=== PATIENT | female | born 1985 | race Caucasian/White ===

== ENCOUNTER 2019-02-10 04:44 | Emergency (ER) | payer BC ==
[2019-02-10 04:56] VITALS: BP 119/83; PULSE 77
[2019-02-10] MEDS ORDERED: Ondansetron 4 MG/2 ML SDV IVPUSH ONE (05:05)
[2019-02-10] MEDS ORDERED: Ketorolac 30 MG/ML SDV IVPUSH ONE (05:06)
--- NOTE | 2019-02-10 05:09 | EDM.PDOC ---
ED HPI GENERAL MEDICAL PROBLEM - General Chief Complaint: Abdominal Pain Stated Complaint: left side sharp pain in back and stomach Time Seen by Provider: 02/10/19 05:07 Source of Information: Reports: Patient History Limitations: Reports: No Limitations - History of Present Illness INITIAL COMMENTS - FREE TEXT/NARRATIVE: This is a 33-year-old female. Around midnight she awoke suddenly with excruciating pain in her left flank. She became nauseated and vomited 1. She got up and walked around and drank some fluids and the pain began to radiate around to the front and down to the left lower quadrant. It has not seemed to ease up completely and she comes to the ER for evaluation. She has no history of kidney stones. She denies any fever or chills. She denies any recent illnesses. 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 History: preeclampsia, dysmenorrhea Oncologic (Cancer) History: Reports: Thyroid Other Oncologic History: follicular thyroid cancer - Past Surgical History Endocrine Surgical History: Reports: Thyroid Biopsy, Thyroidectomy Other Endocrine Surgeries/Procedures: thyroid nodule Social & Family History - Family History HEENT: Reports: Cataract Cardiac: Reports: Afib, High Cholesterol, Hypertension, Pacemaker Other Cardiac Family History: mother father and grandfather Respiratory: Reports: Asthma Neurological: Reports: MS, Parkinson's Other Neurological Family History: aunt, uncle Endocrine/Metabolic: Reports: Diabetes, type II Hematologic: Reports: Immune Thrombocytopenic Purpura Other Hematologic Family History: ITP-sister and dad; "they don't have any platelets" Other Oncologic Family History: cancer of the larynx - Tobacco Use Smoking Status *Q: Current Some Day Smoker Years of Tobacco use: 16 Packs/Tins Daily: 0.5 - Caffeine Use Caffeine Use: Reports: Coffee - Recreational Drug Use Recreational Drug Use: No ED ROS GENERAL - Review of Systems Review Of Systems: See Below Constitutional: Denies: Fever, Chills HEENT: Reports: No Symptoms Respiratory: Reports: No Symptoms Cardiovascular: Reports: No Symptoms Endocrine: Reports: No Symptoms GI/Abdominal: Reports: No Symptoms : Reports: Flank Pain Musculoskeletal: Reports: Back Pain Skin: Reports: No Symptoms Neurological: Reports: No Symptoms Psychiatric: Reports: No Symptoms Hematologic/Lymphatic: Reports: No Symptoms ED EXAM, RENAL/ - Physical Exam Exam: See Below Exam Limited By: No Limitations General Appearance: Alert, WD/WN, Mild Distress Eye Exam: Bilateral Eye: Normal Inspection Ears: Normal External Exam Nose: Normal Inspection Throat/Mouth: Normal Inspection, Normal Lips, Normal Voice Head: Normocephalic Neck: Supple Respiratory/Chest: No Respiratory Distress GI/Abdominal: Soft Back Exam: Normal Inspection, Full Range of Motion, CVA Tenderness (L) Extremities: Normal Inspection, Normal Range of Motion Neurological: Alert, Oriented Psychiatric: Normal Affect, Normal Mood Skin Exam: Warm, Dry Course - Vital Signs Last Recorded V/S: Last Vital Signs Temp 97.5 F 02/10/19 04:52 Pulse 77 02/10/19 04:52 Resp 20 02/10/19 04:52 BP 119/83 02/10/19 04:52 Pulse Ox 97 02/10/19 04:52 - Orders/Labs/Meds Orders: Active Orders 24 hr Category Date Time Status Abdomen Pelvis wo Cont [CT] Stat Exams 02/10/19 05:06 Taken Sodium Chloride 0.9% [Normal Saline] 1,000 ml Med 02/10/19 05:15 Active IV ASDIRECTED Medication Orders Sodium Chloride (Normal Saline) 1,000 mls @ 1,000 mls/hr IV ASDIRECTED MADHU Last Admin: 02/10/19 05:19 Dose: 1,000 mls/hr Labs: Laboratory Tests 02/10/19 02/10/19 02/10/19 Range/Units 05:12 05:15 05:15 WBC 15.15 H (3.98-10.04) K/mm3 RBC 4.71 (3.98-5.22) M/mm3 Hgb 14.0 (11.2-15.7) gm/L Hct 41.0 (34.1-44.9) % MCV 87.0 D (79.4-94.8) fl MCH 29.7 (25.6-32.2) pg MCHC 34.1 (32.2-35.5) g/dl RDW Std Deviation 38.8 (36.4-46.3) fL Plt Count 213 D (182-369) K/mm3 MPV 10.0 (9.4-12.3) fl Neut % (Auto) 85.0 H (34.0-71.1) % Lymph % (Auto) 9.9 L (19.3-51.7) % [place] % (Auto) 4.6 L (4.7-12.5) % Eos % (Auto) 0.1 L (0.7-5.8) Baso % (Auto) 0.2 (0.1-1.2) % Neut # (Auto) 12.87 H (1.56-6.13) K/mm3 Lymph # (Auto) 1.50 (1.18-3.74) K/mm3 [place] # (Auto) 0.70 H (0.24-0.36) K/mm3 Eos # (Auto) 0.02 L (0.04-0.36) K/mm3 Baso # (Auto) 0.03 (0.01-0.08) K/mm3 Manual Slide Review Abnormal smear Sodium 138 (136-145) mEq/L Potassium 3.7 (3.5-5.1) mEq/L Chloride 107 (98-107) mEq/L Carbon Dioxide 19 L (21-32) mEq/L Anion Gap 15.7 H (5-15) BUN 25 H (7-18) mg/dL Creatinine 1.0 (0.55-1.02) mg/dL Est Cr Clr Drug Dosing 71.33 mL/min Estimated GFR (MDRD) > 60 (>60) mL/min BUN/Creatinine Ratio 25.0 H (14-18) Glucose 139 H (74-106) mg/dL Calcium 9.1 (8.5-10.1) mg/dL Total Bilirubin 0.2 (0.2-1.0) mg/dL AST 12 L (15-37) U/L ALT 21 (14-59) U/L Alkaline Phosphatase 42 L (46-116) U/L Total Protein 7.2 (6.4-8.2) g/dl Albumin 4.2 (3.4-5.0) g/dl Globulin 3.0 gm/dL Albumin/Globulin Ratio 1.4 (1-2) Urine Color Yellow (Yellow) Urine Appearance Clear (Clear) Urine pH 6.5 (5.0-8.0) Ur Specific [place] 1.020 (1.005-1.030) Urine Protein Trace H (Negative) Urine Glucose (UA) Negative (Negative) Urine Ketones Negative (Negative) Urine Occult Blood 2+ H (Negative) Urine Nitrite Negative (Negative) Urine Bilirubin Negative (Negative) Urine Urobilinogen 0.2 (0.2-1.0) Ur Leukocyte Esterase Negative (Negative) Urine RBC 10-20 H (0-5) /hpf Urine WBC 0-5 (0-5) /hpf Ur Squamous Epith Cells 0-5 (0-5) /hpf Urine Bacteria Few (FEW) /hpf Hyaline Casts 0-5 (0-5) /lpf Urine Mucus Few (FEW) /hpf Meds: Medications Generic Name Dose Route Start Last Admin Trade Name Freq PRN Reason Stop Dose Admin Sodium Chloride 1,000 mls @ 1,000 mls/hr 02/10/19 05:15 02/10/19 05:19 Normal Saline IV 1,000 mls/hr ASDIRECTED MADHU Administration Discontinued Medications Generic Name Dose Route Start Last Admin Trade Name Freq PRN Reason Stop Dose Admin Ketorolac Tromethamine 30 mg 02/10/19 05:06 02/10/19 05:18 Toradol IVPUSH 02/10/19 05:07 30 mg ONETIME ONE Administration Ondansetron HCl 4 mg 02/10/19 05:05 02/10/19 05:22 Zofran IVPUSH 02/10/19 05:06 4 mg ONETIME ONE Administration - Radiology Interpretation Free Text/Narrative:: CT scan shows bilateral nephrolithiasis. There is some mild left perinephric stranding and there is mild left caliectasis and slight dilatation of the left proximal ureter no stones visualized. It would appear that she passed the stone. - Re-Assessments/Exams Free Text/Narrative Re-Assessment/Exam: 02/10/19 06:15 I spoke to the patient regarding the CT scan results and her blood work. It does appear from the urine and the CT scan that she had a stone and that she passed it. She still has stones in the kidneys however and we discussed that they can come any time and she drinks a lot of coffee and I indicated that this can sometimes promote kidney stones and water for the best fluid. I will send her home with urine strainer but she does not appear to need any pain medications or medicines for nausea. She just has some soreness in the left side but no sharp pain presently Departure - Departure Time of Disposition: 06:16 Disposition: Home, Self-Care 01 Condition: Good Clinical Impression: Ureteral calculus, left, Renal colic on left side Nausea & vomiting Qualifiers: Vomiting type: unspecified Vomiting Intractability: non-intractable Qualified Code(s): R11.2 - Nausea with vomiting, unspecified - Discharge Information *PRESCRIPTION DRUG MONITORING PROGRAM REVIEWED*: Not Applicable *COPY OF PRESCRIPTION DRUG MONITORING REPORT IN PATIENT BRIAN: Not Applicable Instructions: Kidney Stones, Renal Colic Referrals: Bessy Fonseca PA-C [Primary Care Provider] - Forms: ED Department Discharge Additional Instructions: Drink lots of water, strain your urine to see you can capture the stone was in the bladder and then take it to your family doctor for analysis, use Aleve or ibuprofen for the soreness, there is no telling when the other kidney stones might decide to move towards the bladder which will again cause severe pain but you already passed the stone that you had in the left ureter, return to the ER if needed - My Orders Last 24 Hours: My Active Orders 02/10/19 05:06 Abdomen Pelvis wo Cont [CT] Stat 02/10/19 05:15 Sodium Chloride 0.9% [Normal Saline] 1,000 ml IV ASDIRECTED - Assessment/Plan Last 24 Hours: My Active Orders 02/10/19 05:06 Abdomen Pelvis wo Cont [CT] Stat 02/10/19 05:15 Sodium Chloride 0.9% [Normal Saline] 1,000 ml IV ASDIRECTED
[2019-02-10] MEDS ORDERED: Sodium Chloride 0.9% 1,000 ML IV SCH (05:15)
--- NOTE | 2019-02-11 14:12 | CT ---
CT abdomen and pelvis Technique: Multiple axial sections were obtained from above the dome of the diaphragm inferiorly through the pubic symphysis. Intravenous and oral contrast was not utilized. Study has been performed as a ureteral stone protocol. Findings: Multiple nonobstructing calculi are seen within both kidneys. Left kidney is slightly swollen. Left ureter shows no dilatation. No definite ureteral calculi are seen. Findings raise the possibility of recent stone passage on the left side. Visualized lung bases show nothing acute on either side. Noncontrast appearance of the liver and spleen appear within normal limits. Adrenal glands show no nodule. Pancreas shows no discrete abnormality. Gallbladder contains no calcified gallstones. Aorta shows no aneurysm. No retroperitoneal adenopathy or mesenteric abnormalities are seen. No pelvic mass or adenopathy is seen. No free fluid or inflammatory change is seen. Appendix is seen and is normal in size. Bone window settings were reviewed which appear within normal limits for the patient's age. Impression: 1. Multiple nonobstructing calculi within both kidneys. 2. Left kidney is swollen but no signs of ureteral stone noted on the left side. Please correlate if patient symptoms have improved to indicate recent stone passage. 3. Nothing acute is otherwise seen on noncontrast CT study of the abdomen and pelvis. Diagnostic code #2 I agree with preliminary report from [facility], finalized on 02/10/19, 7:00 AM Central Time
== END 2019-02-10 06:35 | disposition home or self-care (01) ==
LOC: JD.ED 04:44
DX: N20.1 Calculus of ureter (principal); F17.210 Nicotine dependence, cigarettes, uncomplicated; Z98.890 Other specified postprocedural states
CPT/HCPCS: 36415; 74176; 80053; 81001; 85025; 96361; 96374; 96375; 99284; J1885; J2405; J7040

== ENCOUNTER 2019-06-08 22:18 | Emergency (ER) | payer BC ==
[2019-06-08 22:29] VITALS: BP 144/95; PULSE 98
[2019-06-08] MEDS ORDERED: Ondansetron 4 MG/2 ML SDV IVPUSH ONE (22:36)
[2019-06-08] MEDS ORDERED: HYDROmorphone 0.5 MG/0.5 ML Syringe IVPUSH ONE ×2 (22:36→23:09)
[2019-06-08] MEDS ORDERED: Ketorolac 30 MG/ML SDV IVPUSH ONE (22:37)
--- NOTE | 2019-06-08 22:38 | EDM.PDOC ---
ED HPI GENERAL MEDICAL PROBLEM - General Chief Complaint: Flank Pain Stated Complaint: PASSING KIDNEY STONE EXTREME PAIN Time Seen by Provider: 06/08/19 22:33 Source of Information: Reports: Patient History Limitations: Reports: No Limitations - History of Present Illness INITIAL COMMENTS - FREE TEXT/NARRATIVE: This is a 33-year-old female. She has been seen in the ER for kidney stones back in January of last year. She was noted on the CT scan to have multiple kidney stones in the renal pelvis. She has been having some intermittent back pain over the last couple days and around 7 PM this evening marked increased pain in the left flank area and it is getting into the left lower quadrant but not down into the groin yet. She is having nausea and vomiting. At home she has been taking ibuprofen that has seemed to help the pain but it has not helped this pain. She denies any blood in her urine. Denies any fever or chills. Left Flank Pain Score (Numeric/FACES): 10 - Related Data Allergies Allergy/AdvReac Type Severity Reaction Status Date / Time No Known Allergies Allergy Verified 06/08/19 22:29 Home Meds: Home Meds Levothyroxine 75 mcg PO ACBREAKFAST 06/08/19 [History] Acetaminophen/oxyCODONE [Percocet 325-10 MG] 1 tab PO Q4H PRN #15 tab 06/09/19 [ Rx] Ondansetron HCl [Zofran] 4 mg PO Q6H PRN #15 tablet 06/09/19 [Rx] Past Medical History - Past Health History Medical/Surgical History: Denies Medical/Surgical History HEENT History: Reports: Impaired Vision Other HEENT History: wears contacts Cardiovascular History: Reports: High Cholesterol 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: , Other (See Below) 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: preeclampsia, dysmenorrhea Oncologic (Cancer) History: Reports: Thyroid Other Oncologic History: follicular thyroid cancer - Past Surgical History Endocrine Surgical History: Reports: Thyroid Biopsy, Thyroidectomy Other Endocrine Surgeries/Procedures: thyroid nodule Social & Family History - Family History HEENT: Reports: Cataract Cardiac: Reports: Afib, High Cholesterol, Hypertension, Pacemaker Other Cardiac Family History: mother father and grandfather Respiratory: Reports: Asthma Neurological: Reports: MS, Parkinson's Other Neurological Family History: aunt, uncle Endocrine/Metabolic: Reports: Diabetes, type II Hematologic: Reports: Immune Thrombocytopenic Purpura Other Hematologic Family History: ITP-sister and dad; "they don't have any platelets" Other Oncologic Family History: cancer of the larynx - Tobacco Use Smoking Status *Q: Current Every Day Smoker Years of Tobacco use: 20 Packs/Tins Daily: 0.5 - Caffeine Use Caffeine Use: Reports: Coffee - Recreational Drug Use Recreational Drug Use: No ED ROS GENERAL - Review of Systems Review Of Systems: See Below Constitutional: Denies: Fever, Chills HEENT: Reports: No Symptoms Respiratory: Reports: No Symptoms Cardiovascular: Reports: No Symptoms Endocrine: Reports: No Symptoms GI/Abdominal: Reports: Nausea, Vomiting. Denies: Abdominal Pain, Diarrhea : Reports: Flank Pain. Denies: Dysuria Musculoskeletal: Reports: Back Pain Skin: Reports: No Symptoms Neurological: Reports: No Symptoms Psychiatric: Reports: No Symptoms Hematologic/Lymphatic: Reports: No Symptoms ED EXAM, RENAL/ - Physical Exam Exam: See Below Exam Limited By: No Limitations General Appearance: Alert, WD/WN, Moderate Distress, Other (Active nausea and vomiting) Eye Exam: Bilateral Eye: Normal Inspection Ears: Normal External Exam Nose: Normal Inspection Throat/Mouth: Normal Inspection, Normal Lips, Normal Voice, No Airway Compromise Head: Normocephalic Neck: Supple Respiratory/Chest: No Respiratory Distress Back Exam: CVA Tenderness (L), Other (It is in the left flank and also mildly in the left lower quadrant but no peritoneal symptoms, she is pacing in the room due to the pain.) Extremities: Normal Inspection, Normal Range of Motion Neurological: Alert, Oriented Psychiatric: Normal Affect, Normal Mood Skin Exam: Warm, Dry Course - Vital Signs Last Recorded V/S: Last Vital Signs Temp 98.4 F 06/08/19 22:27 Pulse 98 06/08/19 22:27 Resp 16 06/08/19 22:27 BP 144/95 H 06/08/19 22:27 Pulse Ox 100 06/08/19 22:27 - Orders/Labs/Meds Orders: Active Orders 24 hr Category Date Time Status Abdomen Pelvis wo Cont [CT] Stat Exams 06/08/19 23:13 Taken Sodium Chloride 0.9% [Normal Saline] 1,000 ml Med 06/08/19 22:45 Active IV ASDIRECTED Medication Orders Sodium Chloride (Normal Saline) 1,000 mls @ 1,000 mls/hr IV ASDIRECTED MADHU Last Admin: 06/08/19 22:44 Dose: 1,000 mls/hr Labs: Laboratory Tests 06/08/19 06/08/19 06/08/19 Range/Units 22:31 23:44 23:44 WBC 14.74 H (3.98-10.04) K/mm3 RBC 3.94 L (3.98-5.22) M/mm3 Hgb 11.9 D (11.2-15.7) gm/dl Hct 35.0 (34.1-44.9) % MCV 88.8 (79.4-94.8) fl MCH 30.2 (25.6-32.2) pg MCHC 34.0 (32.2-35.5) g/dl RDW Std Deviation 39.8 (36.4-46.3) fL Plt Count 190 (182-369) K/mm3 MPV 9.7 (9.4-12.3) fl Neut % (Auto) 79.0 H (34.0-71.1) % Lymph % (Auto) 14.9 L (19.3-51.7) % [place] % (Auto) 5.6 (4.7-12.5) % Eos % (Auto) 0.3 L (0.7-5.8) Baso % (Auto) 0.1 (0.1-1.2) % Neut # (Auto) 11.63 H (1.56-6.13) K/mm3 Lymph # (Auto) 2.19 (1.18-3.74) K/mm3 [place] # (Auto) 0.83 H (0.24-0.36) K/mm3 Eos # (Auto) 0.05 (0.04-0.36) K/mm3 Baso # (Auto) 0.02 (0.01-0.08) K/mm3 Manual Slide Review Abnormal smear Sodium 143 (136-145) mEq/L Potassium 2.7 L (3.5-5.1) mEq/L Chloride 107 (98-107) mEq/L Carbon Dioxide 21 (21-32) mEq/L Anion Gap 17.7 H (5-15) BUN 17 (7-18) mg/dL Creatinine 1.0 (0.55-1.02) mg/dL Est Cr Clr Drug Dosing TNP Estimated GFR (MDRD) > 60 (>60) mL/min BUN/Creatinine Ratio 17.0 (14-18) Glucose 115 H (74-106) mg/dL Calcium 7.8 L (8.5-10.1) mg/dL Total Bilirubin 0.1 L (0.2-1.0) mg/dL AST 11 L (15-37) U/L ALT 22 (14-59) U/L Alkaline Phosphatase 32 L (46-116) U/L C-Reactive Protein (<1.0) mg/dL Total Protein 5.8 L (6.4-8.2) g/dl Albumin 3.4 (3.4-5.0) g/dl Globulin 2.4 gm/dL Albumin/Globulin Ratio 1.4 (1-2) Urine Color Yellow (Yellow) Urine Appearance Clear (Clear) Urine pH 6.5 (5.0-8.0) Ur Specific [place] 1.015 (1.005-1.030) Urine Protein Negative (Negative) Urine Glucose (UA) Negative (Negative) Urine Ketones Negative (Negative) Urine Occult Blood 2+ H (Negative) Urine Nitrite Negative (Negative) Urine Bilirubin Negative (Negative) Urine Urobilinogen 0.2 (0.2-1.0) Ur Leukocyte Esterase Negative (Negative) Urine RBC 5-10 H (0-5) /hpf Urine WBC 0-5 (0-5) /hpf Ur Squamous Epith Cells 0-5 (0-5) /hpf Urine Bacteria Rare (FEW) /hpf Urine Mucus Not seen (FEW) /hpf 06/08/19 Range/Units 23:44 WBC (3.98-10.04) K/mm3 RBC (3.98-5.22) M/mm3 Hgb (11.2-15.7) gm/dl Hct (34.1-44.9) % MCV (79.4-94.8) fl MCH (25.6-32.2) pg MCHC (32.2-35.5) g/dl RDW Std Deviation (36.4-46.3) fL Plt Count (182-369) K/mm3 MPV (9.4-12.3) fl Neut % (Auto) (34.0-71.1) % Lymph % (Auto) (19.3-51.7) % [place] % (Auto) (4.7-12.5) % Eos % (Auto) (0.7-5.8) Baso % (Auto) (0.1-1.2) % Neut # (Auto) (1.56-6.13) K/mm3 Lymph # (Auto) (1.18-3.74) K/mm3 [place] # (Auto) (0.24-0.36) K/mm3 Eos # (Auto) (0.04-0.36) K/mm3 Baso # (Auto) (0.01-0.08) K/mm3 Manual Slide Review Sodium (136-145) mEq/L Potassium (3.5-5.1) mEq/L Chloride (98-107) mEq/L Carbon Dioxide (21-32) mEq/L Anion Gap (5-15) BUN (7-18) mg/dL Creatinine (0.55-1.02) mg/dL Est Cr Clr Drug Dosing Estimated GFR (MDRD) (>60) mL/min BUN/Creatinine Ratio (14-18) Glucose (74-106) mg/dL Calcium (8.5-10.1) mg/dL Total Bilirubin (0.2-1.0) mg/dL AST (15-37) U/L ALT (14-59) U/L Alkaline Phosphatase (46-116) U/L C-Reactive Protein < 0.2 (<1.0) mg/dL Total Protein (6.4-8.2) g/dl Albumin (3.4-5.0) g/dl Globulin gm/dL Albumin/Globulin Ratio (1-2) Urine Color (Yellow) Urine Appearance (Clear) Urine pH (5.0-8.0) Ur Specific [place] (1.005-1.030) Urine Protein (Negative) Urine Glucose (UA) (Negative) Urine Ketones (Negative) Urine Occult Blood (Negative) Urine Nitrite (Negative) Urine Bilirubin (Negative) Urine Urobilinogen (0.2-1.0) Ur Leukocyte Esterase (Negative) Urine RBC (0-5) /hpf Urine WBC (0-5) /hpf Ur Squamous Epith Cells (0-5) /hpf Urine Bacteria (FEW) /hpf Urine Mucus (FEW) /hpf Meds: Medications Generic Name Dose Route Start Last Admin Trade Name Freq PRN Reason Stop Dose Admin Sodium Chloride 1,000 mls @ 1,000 mls/hr 06/08/19 22:45 06/08/19 22:44 Normal Saline IV 1,000 mls/hr ASDIRECTED MADHU Administration Discontinued Medications Generic Name Dose Route Start Last Admin Trade Name Jesika PRN Reason Stop Dose Admin Hydromorphone HCl 0.5 mg 06/08/19 22:36 06/08/19 22:46 Dilaudid IVPUSH 06/08/19 22:37 0.5 mg ONETIME ONE Administration Hydromorphone HCl 0.5 mg 06/08/19 23:09 06/08/19 23:16 Dilaudid IVPUSH 06/08/19 23:10 0.5 mg ONETIME ONE Administration Hydromorphone HCl 0.5 mg 06/09/19 00:20 06/09/19 00:29 Dilaudid IVPUSH 06/09/19 00:21 0.5 mg ONETIME ONE Administration Ketorolac Tromethamine 30 mg 06/08/19 22:37 06/08/19 22:48 Toradol IVPUSH 06/08/19 22:38 30 mg ONETIME ONE Administration Ondansetron HCl 4 mg 06/08/19 22:36 06/08/19 22:44 Zofran IVPUSH 06/08/19 22:37 4 mg ONETIME ONE Administration Potassium Bicarbonate 40 meq 06/09/19 00:17 06/09/19 00:28 Effer-K PO 06/09/19 00:18 40 meq ONETIME ONE Administration - Radiology Interpretation Free Text/Narrative:: ET scan shows a 6 mm stone at the proximal left ureter with hydronephrosis and some mild perinephric stranding. - Re-Assessments/Exams Free Text/Narrative Re-Assessment/Exam: 06/08/19 23:14 Pain is beginning to subside now but I will give her a little more medication for the left flank pain. Because of her history and the previous CT scan suggesting multiple stones in the renal pelvis I am going to CT scan for the kidney stones. 06/09/19 01:00 Spoke to the patient regarding the CT scan results. I also spoke to Dr. Jessica ch and he would like to see her sooner rather than later so she is to call his office Monday morning at 8 to get an appointment to be seen for this stone and possible stent placement. In the meantime she is to take the medicine for nausea and pain as needed or return to the ER for symptoms worsen or if she develops a fever. 06/09/19 01:01 We noted that her white count 14.7, with a minimal shift. Her BUN and creatinine are normal but her potassium was 2.7 and an anion gap of 17.7. We did give her 40 mEq of potassium p.o. and I told her to back off on her water consumption. Urine appears to be normal without bacteria white cells or positive nitrites. Departure - Departure Time of Disposition: 01:03 Disposition: Home, Self-Care 01 Condition: Fair Clinical Impression: Ureteral calculus, left, Renal colic on left side, Hydronephrosis, left Nausea and vomiting Qualifiers: Vomiting type: unspecified Vomiting Intractability: non-intractable Qualified Code(s): R11.2 - Nausea with vomiting, unspecified - Discharge Information *PRESCRIPTION DRUG MONITORING PROGRAM REVIEWED*: No *COPY OF PRESCRIPTION DRUG MONITORING REPORT IN PATIENT BRIAN: No Prescriptions: Acetaminophen/oxyCODONE [Percocet 325-10 MG] 1 tab PO Q4H PRN #15 tab PRN Reason: Pain Ondansetron HCl [Zofran] 4 mg PO Q6H PRN #15 tablet PRN Reason: Nausea Instructions: Kidney Stones, Nausea, Adult Referrals: Gary Bains MD [Ordering Only Provider] - Forms: ED Department Discharge Additional Instructions: Continue to drink fluids but back off a little bit since you are washing out your potassium, we replenish your potassium in the ER, take the medicine for pain and nausea as needed, call Dr. Bains's office at [phone] on Monday at 8 AM because he wants to see you soon for your kidney stone. If you have recurrence of the severe symptoms that is not controlled by the medications or if you run a fever greater than 101 you need to return to the ER Sepsis Event Note - Evaluation Sepsis Screening Result: No Definite Risk - Focused Exam Vital Signs: Vital Signs Temp Pulse Resp BP Pulse Ox 06/08/19 22:27 98.4 F 98 16 144/95 H 100 Date Exam was Performed: 06/09/19 Time Exam was Performed: 01:00 - My Orders Last 24 Hours: My Active Orders 06/08/19 22:45 Sodium Chloride 0.9% [Normal Saline] 1,000 ml IV ASDIRECTED 06/08/19 23:13 Abdomen Pelvis wo Cont [CT] Stat - Assessment/Plan Last 24 Hours: My Active Orders 06/08/19 22:45 Sodium Chloride 0.9% [Normal Saline] 1,000 ml IV ASDIRECTED 06/08/19 23:13 Abdomen Pelvis wo Cont [CT] Stat
[2019-06-08] MEDS ORDERED: Sodium Chloride 0.9% 1,000 ML IV SCH (22:45)
[2019-06-09] MEDS ORDERED: Potassium Bicarbonate/Cit Ac 20 MEQ Effervescent Tab PO ONE (00:17)
[2019-06-09] MEDS ORDERED: HYDROmorphone 0.5 MG/0.5 ML Syringe IVPUSH ONE (00:20)
[2019-06-09] MEDS ORDERED: Acetaminophen/oxyCODONE 325-5 MG Tab PO ONE (01:12)
--- NOTE | 2019-06-09 17:49 | CT ---
CT abdomen and pelvis Technique: Multiple axial sections were obtained from above the dome of the diaphragm inferiorly through the pubic symphysis. Intravenous contrast and oral contrast not utilized. Study has been performed as a ureteral stone protocol. Comparison: Previous renal stone CT exam of 02/10/19 is available. Findings: Ureteral calculus is noted at the level of the left UPJ measuring 5-6 mm in size. This obstructing stone causes proximal hydronephrosis. Small nonobstructing calculi are seen within both kidneys. No additional ureteral dilatation or ureteral stone is seen. Other findings: Visualized lung bases show nothing acute. Noncontrast appearance of the liver appears within normal limits. Spleen appears within normal limits. Adrenal glands show no nodule. Pancreas is within normal limits. Aorta shows no aneurysm. No retroperitoneal adenopathy is seen. Gallbladder contains no calcified gallstones. No mesenteric abnormalities are seen. No pelvic mass or adenopathy is seen. No free fluid or inflammatory change is appreciated within the abdomen or within the pelvis. Appendix felt to be visualized and is normal in size. Bone window settings were reviewed which appear within normal limits for the patient's age. Impression: 1. Multiple small nonobstructing calculi are noted within both kidneys. 2. 5-6 mm obstructing stone located at the left UPJ causing proximal hydronephrosis. 3. No other acute finding is seen on noncontrast CT study of the abdomen and pelvis. Diagnostic code #3 This report was dictated in [place] Standard Time I agree with preliminary report from [facility], finalized on 06/09/19, 12:48 AM Central Time
== END 2019-06-09 01:22 | disposition home or self-care (01) ==
LOC: JD.ED 22:18
DX: N13.2 Hydronephrosis with renal and ureteral calculous obstruction (principal); F17.210 Nicotine dependence, cigarettes, uncomplicated; Z79.899 Other long term (current) drug therapy; Z85.850 Personal history of malignant neoplasm of thyroid
CPT/HCPCS: 36415; 74176; 80053; 81001; 85025; 86140; 96361; 96374; 96375; 99284; A9270; J1170; J1885; J2405; J7030

== ENCOUNTER 2019-06-09 13:56 | Emergency (ER) | payer BC ==
[2019-06-09 14:06] VITALS: BP 131/104; PULSE 97
[2019-06-09] MEDS ORDERED: Dextrose 5%-0.9% NaCl 1,000 ML IV SCH (14:30)
[2019-06-09] MEDS ORDERED: HYDROmorphone 1 MG/ML Syringe IVPUSH ONE (14:31)
[2019-06-09] MEDS ORDERED: Metoclopramide 10 MG/2 ML SDV IVPUSH ONE (14:31)
--- NOTE | 2019-06-09 14:35 | EDM.PDOC ---
ED HPI GENERAL MEDICAL PROBLEM - General Chief Complaint: Genitourinary Problem Stated Complaint: KIDNEY STONE Time Seen by Provider: 06/09/19 14:30 Source of Information: Reports: Patient History Limitations: Reports: No Limitations - History of Present Illness INITIAL COMMENTS - FREE TEXT/NARRATIVE: 33-year-old female presents to the ED within 12 hours of being seen through the ED due to acute onset of severe left renal colic shortly after midnight. Patient is identified to have a 6 mm stone in the proximal left ureter. Moderate degree of hydronephrosis. States that pain was pretty well gone by the time she left the ED but came back shortly after getting home. Over the last 2 hours the pain has intensified severely. She states she shaking due to the severity of the pain. Associated nausea without vomiting. Zofran sublingual has helped curtail vomiting. She has not eaten since she got home. Earlier this morning. 2 renal colic twice in the past. No previous need for lithotripsy. He is not a diabetic. Both kidneys are functioning. Onset: Today Onset Date: 06/09/19 Onset Time: 00:00 ( is been spearing saying mild left flank pain off and on for the last couple of days but pain became very intense around midnight and precipitated ED visit. CT identified a 6 mm stone in the left proximal ureter. His multiple smaller stones within the renal parenchyma bilaterally.) Duration: Hour(s):, Getting Worse Location: Reports: Abdomen (Left flank left upper abdomen), Back Quality: Reports: Other Severity: Severe (Strong constant pain with intermittent worsening i.e. colicky component) Improves with: Reports: None ( noted 10) Worsens with: Reports: None Context: Reports: Other (Spontaneous occurrence of pain due to renal colic.). Denies: Activity, Exercise, Lifting, Sick Contact, Trauma Associated Symptoms: Reports: Loss of Appetite, Malaise, Nausea/Vomiting, Weakness. 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 below) (Zofran 4 mg sublingually.) abd Pain Score (Numeric/FACES): 10 - Related Data Allergies Allergy/AdvReac Type Severity Reaction Status Date / Time No Known Allergies Allergy Verified 06/09/19 14:06 Home Meds: Home Meds Levothyroxine 75 mcg PO ACBREAKFAST 06/08/19 [History] Acetaminophen/oxyCODONE [Percocet 325-10 MG] 1 tab PO Q4H PRN #15 tab 06/09/19 [ Rx] Ondansetron HCl [Zofran] 4 mg PO Q6H PRN #15 tablet 06/09/19 [Rx] Past Medical History - Past Health History Medical/Surgical History: Denies Medical/Surgical History HEENT History: Reports: Impaired Vision Other HEENT History: wears contacts Cardiovascular History: Reports: High Cholesterol 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: , 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 (See Below) Other LODGING HOUSE KEEPER History: preeclampsia, dysmenorrhea Oncologic (Cancer) History: Reports: Thyroid Other Oncologic History: follicular thyroid cancer - Past Surgical History Endocrine Surgical History: Reports: Thyroid Biopsy, Thyroidectomy Other Endocrine Surgeries/Procedures: thyroid nodule Social & Family History - Family History HEENT: Reports: Cataract Cardiac: Reports: Afib, High Cholesterol, Hypertension, Pacemaker Other Cardiac Family History: mother father and grandfather Respiratory: Reports: Asthma Neurological: Reports: MS, Parkinson's Other Neurological Family History: aunt, uncle Endocrine/Metabolic: Reports: Diabetes, type II Hematologic: Reports: Immune Thrombocytopenic Purpura Other Hematologic Family History: ITP-sister and dad; "they don't have any platelets" Other Oncologic Family History: cancer of the larynx - Tobacco Use Smoking Status *Q: Current Every Day Smoker Years of Tobacco use: 20 Packs/Tins Daily: 0.5 - Caffeine Use Caffeine Use: Reports: None - Recreational Drug Use Recreational Drug Use: No - Living Situation & Occupation Living situation: Reports: (Self-employed) Occupation: Employed ED ROS GENERAL - Review of Systems Review Of Systems: See Below Constitutional: Reports: Chills, Weakness, Fatigue, Decreased Appetite. Denies : Fever, Malaise (Shaking with pain I believe versus rigors. She is not febrile) HEENT: Reports: No Symptoms Respiratory: Reports: Shortness of Breath Cardiovascular: Reports: Lightheadedness. Denies: Chest Pain (Can take a full deep breath because it makes the back pain worse.), Blood Pressure Problem, Claudication, Dyspnea on Exertion, Edema (Due to the intensity of pain at times. ), Orthopnea Endocrine: Reports: No Symptoms GI/Abdominal: Reports: Abdominal Pain (Left upper quadrant referred from the ), Decreased Appetite, Nausea, Vomiting (Vomited earlier but not the last 6 hours) : Reports: Frequency, Urgency, Other (The feeling of need to void but is not always able to.) Musculoskeletal: Reports: Back Pain Skin: Reports: Pallor, Diaphoresis Neurological: Reports: No Symptoms Psychiatric: Reports: No Symptoms Hematologic/Lymphatic: Reports: No Symptoms Immunologic: Reports: No Symptoms ED EXAM, RENAL/ - Physical Exam Exam: See Below Exam Limited By: No Limitations General Appearance: Alert, Severe Distress, Other (Catheters 36.8 heart rate is 97 respiratory distress 24 with sats of 99% BP elevated 1 28/06/03.) Eye Exam: Bilateral Eye: Normal Inspection (No scleral icterus. No peripheral pallor.) Throat/Mouth: Normal Lips (Tongue is mildly dry and coated.), Normal Teeth, Other Head: Atraumatic, Normocephalic Respiratory/Chest: Lungs Clear, Normal Breath Sounds, No Accessory Muscle Use, Chest Non-Tender, Respiratory Distress Cardiovascular: Normal Peripheral Pulses, Regular Rate, Rhythm, No Edema, No Gallop, No Murmur, No Rub GI/Abdominal: No Organomegaly (Bowel sounds are absent.), No Abnormal Bruit, No Mass, Pelvis Stable, Tender (Mildly tender left upper quadrant of the abdomen.) , Abnormal Bowel Sounds Back Exam: CVA Tenderness (L). No: CVA Tenderness (R) Extremities: Normal Inspection, Normal Range of Motion, Non-Tender, Other Neurological: Alert, Oriented (Extremities are cool and clammy due to severity of pain), CN II-XII Intact, Normal Cognition Psychiatric: Anxious, Other Skin Exam: Cool, Diaphoretic, Pallor Course - Vital Signs Last Recorded V/S: Last Vital Signs Temp 36.8 C 06/09/19 14:03 Pulse 97 06/09/19 14:03 Resp 24 H 06/09/19 14:03 BP 131/104 H 06/09/19 14:03 Pulse Ox 99 06/09/19 14:03 - Orders/Labs/Meds Orders: Active Orders 24 hr Category Date Time Status URINALYSIS W/MICROSCOPIC [UA W/MICROSCOPIC] [URIN] Stat Lab 06/09/19 17:30 Results Dextrose 5%-0.9% NaCl [Dextrose 5%-Normal Saline] 1,000 Med 06/09/19 14:30 Active ml IV ASDIRECTED Ketorolac [Toradol] Med 06/09/19 14:45 Active 30 mg IVPUSH ONETIME Medication Orders Dextrose/Sodium Chloride (Dextrose 5%-Normal Saline) 1,000 mls @ 250 mls/hr IV ASDIRECTED MADHU Last Admin: 06/09/19 14:50 Dose: 250 mls/hr Ketorolac Tromethamine (Toradol) 30 mg IVPUSH ONETIME MADHU Last Admin: 06/09/19 14:48 Dose: 30 mg Labs: Laboratory Tests 06/09/19 06/09/19 06/09/19 Range/Units 14:47 14:47 17:30 WBC 15.09 H (3.98-10.04) K/mm3 RBC 4.29 (3.98-5.22) M/mm3 Hgb 12.8 (11.2-15.7) gm/dl Hct 37.8 (34.1-44.9) % MCV 88.1 (79.4-94.8) fl MCH 29.8 (25.6-32.2) pg MCHC 33.9 (32.2-35.5) g/dl RDW Std Deviation 39.7 (36.4-46.3) fL Plt Count 217 (182-369) K/mm3 MPV 10.2 (9.4-12.3) fl Neut % (Auto) 79.1 H (34.0-71.1) % Lymph % (Auto) 14.6 L (19.3-51.7) % [place] % (Auto) 5.6 (4.7-12.5) % Eos % (Auto) 0.2 L (0.7-5.8) Baso % (Auto) 0.2 (0.1-1.2) % Neut # (Auto) 11.94 H (1.56-6.13) K/mm3 Lymph # (Auto) 2.20 (1.18-3.74) K/mm3 [place] # (Auto) 0.85 H (0.24-0.36) K/mm3 Eos # (Auto) 0.03 L (0.04-0.36) K/mm3 Baso # (Auto) 0.03 (0.01-0.08) K/mm3 Manual Slide Review Normal smear Sodium 141 (136-145) mEq/L Potassium 3.3 L (3.5-5.1) mEq/L Chloride 106 (98-107) mEq/L Carbon Dioxide 21 (21-32) mEq/L Anion Gap 17.3 H (5-15) BUN 15 (7-18) mg/dL Creatinine 1.1 H (0.55-1.02) mg/dL Est Cr Clr Drug Dosing 64.84 mL/min Estimated GFR (MDRD) 57 (>60) mL/min BUN/Creatinine Ratio 13.6 L (14-18) Glucose 111 H (74-106) mg/dL Uric Acid 3.1 (2.6-6.0) mg/dL Calcium 8.1 L (8.5-10.1) mg/dL Total Bilirubin 0.3 (0.2-1.0) mg/dL AST 15 (15-37) U/L ALT 26 (14-59) U/L Alkaline Phosphatase 31 L (46-116) U/L C-Reactive Protein 0.4 (<1.0) mg/dL Total Protein 6.5 (6.4-8.2) g/dl Albumin 3.7 (3.4-5.0) g/dl Globulin 2.8 gm/dL Albumin/Globulin Ratio 1.3 (1-2) Urine Color Yellow (Yellow) Urine Appearance Clear (Clear) Urine pH 6.5 (5.0-8.0) Ur Specific [place] 1.025 (1.005-1.030) Urine Protein Trace H (Negative) Urine Glucose (UA) Negative (Negative) Urine Ketones 1+ H (Negative) Urine Occult Blood 2+ H (Negative) Urine Nitrite Negative (Negative) Urine Bilirubin Negative (Negative) Urine Urobilinogen 0.2 (0.2-1.0) Ur Leukocyte Esterase Negative (Negative) Meds: Medications Generic Name Dose Route Start Last Admin Trade Name Freq PRN Reason Stop Dose Admin Dextrose/Sodium Chloride 1,000 mls @ 250 mls/hr 06/09/19 14:30 06/09/19 14:50 Dextrose 5%-Normal Saline IV 250 mls/hr ASDIRECTED MADHU Administration Ketorolac Tromethamine 30 mg 06/09/19 14:45 06/09/19 14:48 Toradol IVPUSH 30 mg ONETIME MADHU Administration Discontinued Medications Generic Name Dose Route Start Last Admin Trade Name Jesika PRN Reason Stop Dose Admin Hydromorphone HCl 1 mg 06/09/19 14:31 06/09/19 14:48 Dilaudid IVPUSH 06/09/19 14:32 1 mg ONETIME ONE Administration Hydromorphone HCl 0.5 mg 06/09/19 16:27 06/09/19 16:35 Dilaudid IVPUSH 06/09/19 16:28 0.5 mg ONETIME ONE Administration Metoclopramide HCl 7.5 mg 06/09/19 14:31 06/09/19 14:49 Reglan IVPUSH 06/09/19 14:32 7.5 mg ONETIME ONE Administration - Radiology Interpretation Free Text/Narrative:: 33-year-old female presents the ED with severe left-sided renal colic. She percent shortly after midnight with renal colic pain and CT demonstrated a 6 mm stone in the left proximal ureter. She has had renal colic on 2 occasions in the past was always able to pass the stones. Multiple small calculi in both renal parenchyma at this time. Clearly she has a fairly high-grade obstruction of the proximal left ureter. Rates the Zofran does help the nausea but the pain is uncontrolled. Land IV D5 normal saline at 250 mils per hour. Given Dilaudid 1 mg IV with Reglan 7.5 mg IV and Toradol 30 mg IV for pain and nausea relief. - Re-Assessments/Exams Free Text/Narrative Re-Assessment/Exam: 06/09/19 16:27 patient overall is doing much better. Down to a 2 out of 10. Will repeat Dilaudid 0.5 milligrams IV for pain relief. 06/09/19 17:41 urinalysis has been collected and is negative for any signs of infection. It contains 3+ hematuria. Also 3+ ketones. She'll be discharged to home as she has Percocet 10/325 mg tablets to be used with Zofran as needed for pain relief. She is to follow-up with urology services in [place] tomorrow. As prearranged by Dr. Motta. Departure - Departure Time of Disposition: 17:42 Disposition: Home, Self-Care 01 Condition: Fair Clinical Impression: Renal colic on left side, Ureteral calculus, left - Discharge Information *PRESCRIPTION DRUG MONITORING PROGRAM REVIEWED*: Not Applicable *COPY OF PRESCRIPTION DRUG MONITORING REPORT IN PATIENT BRIAN: Not Applicable Referrals: Bessy Fonseca PA-C [Primary Care Provider] - Forms: ED Department Discharge Additional Instructions: Evaluation the emergency room today in regards to recurrence of severe pain left flank and back and left upper quadrant of the abdomen due to a 6 mm stone in the upper proximal left ureter. This was identified earlier by CT scan this a.m. It appears that the stone continues to move down the ureter and thus the pain is exacerbated when the stone was. When it stops moving the pain goes away after 6 hours or so. You're treated in the emergency room with intravenous pain medication Dilaudid 0.5 mg 2 doses with Toradol 30 mg IV and antinausea medication Reglan 7.5 mg IV. Minute home is to try and continue plenty of fluids. Percocet tabs 10/325 mg one every 3-4 hours as needed for pain relief as prescribed by Dr. Motta. Zofran 4 mg under the tongue every 4-6 hours as needed for nausea relief. Follow up with urologist in [place] tomorrow as planned. Of note CT scan reveals 5 small 1-2 mm stones embedded within the left kidney tissue and 2 on the right side. Problematic stone is 6 mm in size and is in the left upper ureter. It is our goal likely going to have to be broken up by lithotripsy. You may require the stone to be bypassed by placement of a catheter in the ureter tomorrow. You should attend [place] was nothing to eat after 3 AM tomorrow morning. Sepsis Event Note - Evaluation Sepsis Screening Result: No Definite Risk - Focused Exam Vital Signs: Vital Signs Temp Pulse Resp BP Pulse Ox 06/09/19 14:03 36.8 C 97 24 H 131/104 H 99 Date Exam was Performed: 06/09/19 Time Exam was Performed: 17:41 - My Orders Last 24 Hours: My Active Orders 06/09/19 14:30 Dextrose 5%-0.9% NaCl [Dextrose 5%-Normal Saline] 1,000 ml IV ASDIRECTED 06/09/19 14:45 Ketorolac [Toradol] 30 mg IVPUSH ONETIME 06/09/19 17:30 URINALYSIS W/MICROSCOPIC [UA W/MICROSCOPIC] [URIN] Stat - Assessment/Plan Last 24 Hours: My Active Orders 06/09/19 14:30 Dextrose 5%-0.9% NaCl [Dextrose 5%-Normal Saline] 1,000 ml IV ASDIRECTED 06/09/19 14:45 Ketorolac [Toradol] 30 mg IVPUSH ONETIME 06/09/19 17:30 URINALYSIS W/MICROSCOPIC [UA W/MICROSCOPIC] [URIN] Stat
[2019-06-09] MEDS ORDERED: Ketorolac 30 MG/ML SDV IVPUSH SCH (14:45)
[2019-06-09] MEDS ORDERED: HYDROmorphone 0.5 MG/0.5 ML Syringe IVPUSH ONE (16:27)
== END 2019-06-09 18:09 | disposition home or self-care (01) ==
LOC: JD.ED 13:56
DX: N20.1 Calculus of ureter (principal); Z85.850 Personal history of malignant neoplasm of thyroid; F17.210 Nicotine dependence, cigarettes, uncomplicated
CPT/HCPCS: 36415; 80053; 81001; 84550; 85025; 86140; 96361; 96374; 96375; 96376; 99284; J1170; J1885; J2765; J7042